=== PATIENT | male | born 1935 ===

== ENCOUNTER 2016-10-30 11:31 | Inpatient (IN) | payer MEDICARE ==
[2016-10-30 11:31] VITALS: BMI 23.1
[2016-10-30] MEDS ORDERED: Piperacill/Tazo 4.5gm in NS 100 ML IVPB STA (12:15)
[2016-10-30] MEDS ORDERED: Morphine 4 mg/ml ISec IVP STA (12:15)
--- NOTE | 2016-10-30 12:16 | ED PDOC ---
Arrival/HPI - General Chief Complaint: Abnormal Skin Integrity Time Seen by Provider: 10/30/16 12:11 Historian: Family (Daughter) - History of Present Illness Narrative History of Present Illness (Text): 10/30/16 12:11 A 81 year old male, whose past medical history includes Alzheimer's disease, Parkinson's disease and dementia, was brought into the emergency department by daughter complaining of discoloration on left heel for the past 3 days. Patient was seen by PMD today and sent in to emergency room for admission. As per daughter, patient is acting normal to baseline. ROS limited due to patients state. PMD: Dr. Hernández Time/Duration: Other (3 days) Symptom Course: Worsening Quality: Other Context: Home Past Medical History - Provider Review Nursing Documentation Reviewed: Yes - Infectious Disease Hx of Infectious Diseases: None - Cardiac Hx Atrial Fibrillation: Yes Hx Hypertension: Yes - Pulmonary Hx Respiratory Disorders: No - Neurological Hx Alzheimer's Disease: Yes Hx Dementia: Yes Hx Parkinson's Disease: Yes - Renal Hx Renal Disorder: Yes Hx Renal Cancer: Yes (BLADDER CA WITH SX) - Musculoskeletal/Rheumatological Hx Falls: Yes - Genitourinary/Gynecological Hx Bladder Cancer: Yes (removed 20 years ago) - Psychiatric Hx Substance Use: No - Surgical History Other/Comment: prostate surgery 20 years ago - Anesthesia Hx Anesthesia Reactions: No Hx Malignant Hyperthermia: No Family/Social History - Physician Review Nursing Documentation Reviewed: Yes Family/Social History: No Known Family HX Smoking Status: Never Smoked Hx Alcohol Use: No Hx Substance Use: No Allergies/Home Meds Allergies/Adverse Reactions: Allergies donepezil HCl [From Aricept] Adverse Reaction (Verified 10/30/16 12:05) ANAPHYLAXIS Home Medications: Home Meds Medication Instructions Recorded Confirmed Aspirin [Ecotrin] 81 mg PO DAILY 08/04/16 08/07/16 Carbidopa/Levodopa 1 tab PO BID 08/04/16 10/30/16 [Carbidopa-Levodopa 25-100 Tab] Cyproheptadine [Periactin] 4 mg PO BID 08/04/16 10/30/16 Memantine [Namenda] 10 mg PO BID 08/04/16 10/30/16 Metoprolol Succinate [Toprol XL] 50 mg PO DAILY 08/04/16 10/30/16 Olmesartan/Hydrochlorothiazide 1 mg PO DAILY 08/04/16 10/30/16 [Benicar Hct 20-12.5 mg Tablet] diltiaZEM CD [Cardizem CD] 120 mg PO DAILY 08/07/16 10/30/16 Olmesartan/Hydrochlorothiazide 1 tab PO DAILY 10/30/16 10/30/16 [Benicar Hct 12.5 mg-20 mg] Review of Systems - Patients Enrolled in Psychotherapist Counselor Initiative [X]: (Dementia/Alzheimer's disease) - Review of Systems Systems not reviewed;Unavailable: Dementia (/Alziehmer's disease) Physical Exam - Physical Exam Narrative Physical Exam (Text): - Physical exam Patient appears age appropriate - Systems Exam Head: Present: Atraumatic, Normocephalic Pupils: Present: PERRL Extraocular Muscles: Present: EOMI Conjunctiva: Present: Normal Mouth: Present: Moist Mucous Membranes Neck: Present: Normal Range of Motion. No: MIDLINE TENDERNESS, Paraspinal Tenderness Respiratory/Chest: Present: Clear to Auscultation, Good Air Exchange. No: Respiratory Distress, Accessory Muscle Use, Tachypneic Cardiovascular: Present: Regular Rate and Rhythm, Normal S1, S2, Peripheral Pulses Present. No: Murmurs Abdomen: Present: Normal Bowel Sounds, No: Tenderness, Peritoneal Signs, Rebound, Guarding, Distention Back: Present: Normal Inspection. No: Midline Tenderness, Paraspinal Tenderness Upper Extremity: Present: Normal Inspection. No: Cyanosis, Edema Lower Extremity: Present: Discoloration in left heel, dark in appearance and tender to palpation No: Edema Neurological: Present: GCS=15, cranial nerves II through XII fully intact with no cerebellar abnormality, neuro-sensory fully intact. No focal neurological deficits. Skin: Present: Warm, Dry, Normal Color. No: Rashes Lymphatic: Present: OX3, NI, NC Psychiatric: Present: Alert Vital Signs Reviewed: Yes Vital Signs Temp Pulse Resp BP Pulse Ox 10/30/16 14:00 88 20 136/79 100 10/30/16 11:59 100.6 F H 100 H 20 135/77 99 Temperature: Febrile Blood Pressure: Normal Pulse: Tachycardic Respiratory Rate: Normal Appearance: Positive for: Non-Toxic, Comfortable, Cachectic Mental Status: Positive for: other (Alert). No: Agitated Medical Decision Making ED Course and Treatment: 10/30/16 12:11 Impression: A 81 year old male with discoloration on left heel, daughter reports decreased mobility at home. L. heel with dark ulceration on exam. Extremity is warm. Plan: -- Left heel xray -- Labs -- Blood culture -- Morphine, Tylenol and Zosyn -- Reassess and disposition Progress Notes: Report Date : 10/30/2016 15:00:50 PROCEDURE: Radiographs of the left calcaneus/hindfoot. Dictator : Chet Romo MD IMPRESSION: Unremarkable radiographs of the left calcaneus /hindfoot. 10/30/16 15:[address] Hernández, agrees with admission to his service asked to consult Dr. Elam and to order ABIs (aware to f/u) pt's family aware of and agree with plan PROCEDURE: Lower extremity RUSSELL exam Timber Cruiser : Jay Cooper MD FINDINGS: The resting RUSSELL's are normal: right, 1.14and left, 1.19. The brachial systolic pressures are symmetric. The high thigh pressures and waveforms are relatively normal. The calf PVR waveforms augment normally. No significant gradients are noted across the thighs. The ankle and metatarsal waveforms are relatively normal and symmetric. No significant pressure gradients are noted across the lower legs. IMPRESSION: 1. Relatively normal RUSSELL and PVR examination at rest. - Lab Interpretations Lab Results: 10/30/16 12:50 10/30/16 12:50 Lab Results 10/30/16 12:50: WBC 5.9 D, RBC 3.66, Hgb 10.9 L, Hct 31.9 L, MCV 87.2, MCH 29.8 , MCHC 34.2, RDW 13.0, Plt Count 325, MPV 10.2, Gran % 75.6 H, Lymph % (Auto) 13.5 L, [facility] % (Auto) 10.5 H, Eos % (Auto) 0.2 L, Baso % (Auto) 0.2, Gran # 4.49 , Lymph # 0.8 L, [facility] # 0.6, Eos # 0.0, Baso # 0.01, PT 12.4 H, INR 1.15 H, APTT 30.0, Sodium 138, Potassium 4.1, Chloride 100, Carbon Dioxide 30, Anion Gap 12, BUN 18, Creatinine 0.8, Est GFR ( Amer) > 60, Est GFR (Non-Af Amer) > 60, Random Glucose 189 H, Calcium 9.5, Total Bilirubin 1.2, AST 22, ALT 23, Alkaline Phosphatase 87, Total Protein 7.5, Albumin 3.5, Globulin 4.0, Albumin/Globulin Ratio 0.9 L I have reviewed the lab results: Yes - RAD Interpretation Radiology Orders: 10/30/16 13:13 HEEL LEFT [RAD] Stat 10/30/16 15:45 LOWER EXT ART NON-INV COMPL [US] Stat - Medication Orders Current Medication Orders: Carbidopa/Levodopa (Sinemet Cr) 1 tab PO BID [facility] Ampicillin Sodium/Sulbactam (Sodium 1.5 gm/ Sodium Chloride) 100 mls @ 200 mls/ hr IVPB Q6 [facility] PRN Reason: Protocol Losartan Potassium (Cozaar) 50 mg PO DAILY [facility] Memantine (Namenda) 10 mg PO BID [facility] Metoprolol Succinate (Toprol Xl) 50 mg PO BRK [facility] Discontinued Medications Acetaminophen (Tylenol 325mg Tab) 975 mg PO STAT STA Stop: 10/30/16 12:16 Last Admin: 10/30/16 13:04 Dose: Not Given Non-Admin Reason: Patient Refused Piperacillin Sod/Tazobactam Sod (Zosyn 4.5 Gm In Ns 100ml) 100 mls @ 200 mls/ hr IVPB STAT [facility] PRN Reason: Protocol Stop: 10/30/16 12:44 Last Admin: 10/30/16 13:00 Dose: 200 MLS/HR eMAR Start Stop Document 10/30/16 13:00 [place] (Rec: 10/30/16 13:00 [facility] [id number]) Intravenous Solution Start Date 10/30/16 Start Time 13:00 End Date 10/30/16 End time 14:00 Total Infusion Time 60 Losartan Potassium (Cozaar) 50 mg PO STAT STA Stop: 10/30/16 17:08 Morphine Sulfate (Morphine) 4 mg IVP STAT STA Stop: 10/30/16 12:16 Last Admin: 10/30/16 13:00 Dose: 4 MG MAR Pain Assessment Document 10/30/16 13:00 [place] (Rec: 10/30/16 13:01 [facility] [id number]) Pain Reassessment Is this a pain reassessment? No Sleep Is patient sleeping during reassessment? No Presence of Pain Presence of Pain Yes IVP Administration Document 10/30/16 13:00 [place] (Rec: 10/30/16 13:01 [facility] [id number]) Charges for Administration # of IVP Administrations 1 - Scribe Statement The provider has reviewed the documentation as recorded by the Scribe Vangie Cedeno Provider Scribe Attestation: All medical record entries made by the Scribe were at my direction and personally dictated by me. I have reviewed the chart and agree that the record accurately reflects my personal performance of the history, physical exam, medical decision making, and the department course for this patient. I have also personally directed, reviewed, and agree with the discharge instructions and disposition. Disposition/Present on Arrival - Present on Arrival Any Indicators Present on Arrival: No History of DVT/PE: No History of Uncontrolled Diabetes: No Urinary Catheter: No History of Decub. Ulcer: Yes (DTI ,stage 2 decube) History Surgical Site Infection Following: None - Disposition Have Diagnosis and Disposition been Completed?: Yes Diagnosis: Ulcer Disposition: HOSPITALIZED Disposition Time: 15:48 Patient Plan: Admission Patient Problems: Current Active Problems Problem Status Diagnosed Ulcer Acute Condition: FAIR
[2016-10-30 13:05] LABS: ADD MANUAL DIFF? NO
[2016-10-30 13:09] LABS: BASO # 0.01 K/mm3 (0.0-2.0); BASO % 0.2 % (0.0-3.0); EOS % 0.2 % (1.5-5.0); GRAN # 4.49 (1.4-6.5); GRAN % 75.6 % (50.0-68.0); HEMATOCRIT 31.9 % (42.0-52.0); LYMPH # 0.8 (1.2-3.4); LYMPH % 13.5 % (22.0-35.0); MEAN CELL VOLUME 87.2 fL (80.0-105.0); MEAN CORPUSCULAR HEMOGLOBIN 29.8 pg (25.0-35.0); MEAN CORPUSCULAR HGB CONC 34.2 g/dl (31.0-37.0); MEAN PLATELET VOLUME 10.2 fl (7.0-11.0); MONO # 0.6 (0.1-0.6); MONO % 10.5 % (1.0-6.0); PLATELET COUNT 325 10^3/uL (120.0-450.0); WHITE BLOOD COUNT 5.9 10^3/ul (4.5-11.0)
[2016-10-30 13:18] LABS: ALB/GLOB RATIO 0.9 (1.1-1.8); ALKALINE PHOSPHATASE 87 U/L (38-133); ALT/SGPT 23 U/L (7-56); AST/SGOT 22 U/L (15-59); BILIRUBIN,TOTAL 1.2 mg/dL (0.2-1.3); BLOOD UREA NITROGEN 18 mg/dL (7-21); CALCIUM 9.5 mg/dL (8.4-10.5); CARBON DIOXIDE 30 mmol/L (21-33); CHLORIDE 100 mmol/L (98-107); GFR AFRICAN-AMERICAN > 60; GLUCOSE,RANDOM 189 mg/dL (70-110); POTASSIUM 4.1 mmol/L (3.6-5.0); SODIUM 138 mmol/L (132-148); TOTAL PROTEIN 7.5 g/dL (5.8-8.3)
[2016-10-30 13:20] LABS: INR 1.15 (0.93-1.08)
--- NOTE | 2016-10-30 15:02 | RAD ---
PROCEDURE: Radiographs of the left calcaneus/hindfoot. HISTORY: fever, ulcer COMPARISON: None available. TECHNIQUE: Frontal and lateral radiographs of the calcaneus. FINDINGS: No fracture or joint dislocation. No focal lesion. No calcaneal spur. IMPRESSION: Unremarkable radiographs of the left calcaneus /hindfoot.
--- NOTE | 2016-10-30 17:53 | US ---
PROCEDURE: Lower extremity RUSSELL exam HISTORY: Peripheral vascular disease with pain and claudication. Diabetes. Gangrene left foot PHYSICIAN(S): Jay Rowell MD. FINDINGS: The resting RUSSELL's are normal: right, 1.14and left, 1.19. The brachial systolic pressures are symmetric. The high thigh pressures and waveforms are relatively normal. The calf PVR waveforms augment normally. No significant gradients are noted across the thighs. The ankle and metatarsal waveforms are relatively normal and symmetric. No significant pressure gradients are noted across the lower legs. IMPRESSION: 1. Relatively normal RUSSELL and PVR examination at rest.
--- NOTE | 2016-10-30 18:49 | HP ---
HISTORY OF PRESENT ILLNESS: The patient is an 81-year-old male with a history of Alzheimer's and Par kinson's disease, brought into the Emergency Department for a necrotic ulcer involving the left foot with pain and swelling of the left heel for the past 2-3 days. PAST MEDICAL HISTORY: Includes Parkinson's disease with immobility, Alzheimer disease, significant w eight loss, hypertension. There is no history of coronary disease, diabetes or stroke. 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 CURRENT MEDICATIONS: Include Namenda 10 mg twice daily, Benicar HCT 20/12.5 once daily, metoprolol 5 0 mg daily and Sinemet-CR 200/50 twice daily. ALLERGIES: THE PATIENT HAS AN ALLERGY TO ARICEPT. SOCIAL HISTORY: The patient has no history of tobacco or alcohol abuse. He lives with his family. He is dependent with ADLs and IADLs. REVIEW OF SYSTEMS: Essentially unobtainable secondary to the patient's condition. PHYSICAL EXAMINATION: GENERAL: The patient is a cachectic elderly male in no acute distress. VITAL SIGNS: Blood pressure 136/79, temperature 100.6 rectally, pulse 88, respiratory rate 20. HEENT: Head is normocephalic, atraumatic. There is bilateral temporal wasting. Pupils equal, round and reactive. NECK: Somewhat stiff with no carotid bruit, no adenopathy. LUNGS: Clear. There is a poor inspiratory effort. HEART: Regular rate and rhythm. ABDOMEN: Soft, nontender, bowel sounds are normoactive. EXTREMITIES: Without cyanosis, clubbing. There is a 5-6 cm in diameter necrotic ulcer involving the left heel with some surrounding erythema, no discharge. NEUROLOGIC: The patient is responsive to painful stimuli by opening his eyes. He is nonverbal. The re is bilateral muscular atrophy and wasting with significant cogwheeling and rigidity. The patient is oriented x 0. LABORATORY DATA: WBC is 5.9, hemoglobin 10.9, hematocrit 31.9. Sodium 138, potassium 4.1, chloride 100, CO2 of 30, BUN 18, creatinine 0.8, glucose 189. X-ray of the left heel is negative for osteomye litis. Arterial Doppler of the lower extremity showed no significant vascular obstruction. IMPRESSION: 1. Necrotic pressure ulcer of the left foot due to immobility. 2. Advanced Parkinson's disease. 3. History of hypertension. 4. Severe Alzheimer's disease. 5. History of cancer of the prostate, status post radical prostatectomy. PLAN: The patient will be admitted to the medical surgical floor. Will obtain podiatry consult from Dr. Elam. Will start empiric antibiotics with Unasyn 1.5 grams q. 6 hours. Wound care. Social work for discharge planning. Oswaldo Hernández JD, MD cc: [phone] TT: 10/30/2016 18:48:48 mn
[2016-10-30] MEDS: Ampicillin/Sulbactam 1.5 GM in Sodium Chloride 0.9% 100 ML IVPB SCH ×2 (19:16→23:51)
[2016-10-30] MEDS: Carbidopa/Levodopa 50/200 CR PO SCH (19:40)
[2016-10-31] MEDS: Ampicillin/Sulbactam 1.5 GM in Sodium Chloride 0.9% 100 ML IVPB SCH ×4 (06:11→23:19)
[2016-10-31] MEDS: Metoprolol Succinate 50 mg XL Tab PO SCH (08:33)
[2016-10-31] MEDS: Carbidopa/Levodopa 50/200 CR PO SCH ×2 (11:00→18:05)
--- NOTE | 2016-10-31 14:48 | CP.PCM.CON ---
<Jahaira Agueroa - Last Filed: 10/31/16 14:45> History of Present Illness - History of Present Illness History of Present Illness: 81 y/o male with pmhx of parkinsons, alzheimer disease, HTN, seen at bedside with attnding Dr. Rojo for left heel pain. Patient is bedbound with multipodus boots intact to bilateral lower extremities. Patient complains of left heel and left knee pain that started a few days ago. Patient denies any other pedal complaints. Denies n/f/v/d/c/sob. Review of Systems - Constitutional Constitutional: As Per HPI Past Patient History - Infectious Disease Hx of Infectious Diseases: None - Past Social History Smoking Status: Former Smoker - CARDIAC Hx Hypertension: Yes - PULMONARY Hx Respiratory Disorders: No - NEUROLOGICAL Hx Alzheimer's Disease: Yes Hx Dementia: Yes Hx Parkinson's Disease: Yes - HEENT Hx HEENT Problems: No - RENAL Hx Chronic Kidney Disease: Yes Hx Renal (Kidney) Cancer: Yes (BLADDER CA WITH SX) - ENDOCRINE/METABOLIC Hx Endocrine Disorders: No - HEMATOLOGICAL/ONCOLOGICAL Hx Blood Disorders: No - INTEGUMENTARY Hx Dermatological Problems: No Other/Comment: stage two on sacrum - MUSCULOSKELETAL/RHEUMATOLOGICAL Hx Falls: Yes - GENITOURINARY/GYNECOLOGICAL Hx Genitourinary Disorders: Yes Hx Prostate Problems: Yes (PROSTATE CA WITH PROSTECTOMY) - PSYCHIATRIC Hx Substance Use: No - SURGICAL HISTORY Hx Surgeries: Yes Other/Comment: prostate surgery 20 years ago - ANESTHESIA Hx Anesthesia Reactions: No Hx Malignant Hyperthermia: No Meds Allergies/Adverse Reactions: Allergies Allergy/AdvReac Type Severity Reaction Status Date / Time donepezil HCl [From Aricept] AdvReac ANAPHYLAXIS Verified 10/30/16 12:05 - Medications Medications: Current Medications Carbidopa/Levodopa (Sinemet Cr) 1 tab PO BID [facility] Last Admin: 10/31/16 11:00 Dose: 1 tab Ampicillin Sodium/Sulbactam (Sodium 1.5 gm/ Sodium Chloride) 100 mls @ 200 mls/ hr IVPB Q6 [facility] PRN Reason: Protocol Last Admin: 10/31/16 12:33 Dose: 200 mls/hr Losartan Potassium (Cozaar) 50 mg PO DAILY [facility] Last Admin: 10/31/16 11:00 Dose: 50 mg Memantine (Namenda) 10 mg PO BID [facility] Last Admin: 10/31/16 11:00 Dose: 10 mg Metoprolol Succinate (Toprol Xl) 50 mg PO BRK [facility] Last Admin: 10/31/16 08:33 Dose: 50 mg Physical Exam - Constitutional Appears: Well, Non-toxic, No Acute Distress - Extremities Exam Additional comments: Vasc: lightly palpable pedal pulses, CFT < 3 sec to all digits, TG wnl, no edema neuro: grossly diminished derm: no edema, no erythema, echymoses noted to plantar left heel, no ascending cellulitis, no open lesions, no drainage, no acute clinical signs of infection ortho: mild pain on palpation to left plantar heel - Neurological Exam Neurological exam: Alert, Oriented x3 - Psychiatric Exam Psychiatric exam: Normal Affect, Normal Mood Results - Vital Signs Recent Vital Signs: Last Vital Signs Temp 99 F 10/31/16 07:57 Pulse 97 H 10/31/16 11:00 Resp 18 10/31/16 07:57 BP 110/68 10/31/16 11:00 Pulse Ox 95 10/31/16 07:57 - Labs Result Diagrams: 10/30/16 12:50 10/30/16 12:50 Labs: Laboratory Results - last 24 hr 10/30/16 19:16 ESR 69 H Uric Acid 2.8 L Assessment & Plan - Assessment and Plan (Free Text) Assessment: 81 y/o male seen at bedside with attending Dr. Rojo for left heel preulcerative lesion secondary to pressure Plan: patient evaluated and seen at bedside with attending Dr. Rojo labs and vitals reviewed applied optifoam, DSD to left heel continue wearing multipodus boots while in bed Rx arterial doppler bilateral lower extremities RUSSELL / PVr relatively normal; R=1.14, L=1.19 podiatry will continue to monitor while patient remains in house <Luis Alberto Rojo - Last Filed: 10/31/16 16:41> Meds - Medications Medications: Current Medications Carbidopa/Levodopa (Sinemet Cr) 1 tab PO BID [facility] Last Admin: 10/31/16 11:00 Dose: 1 tab Ampicillin Sodium/Sulbactam (Sodium 1.5 gm/ Sodium Chloride) 100 mls @ 200 mls/ hr IVPB Q6 [facility] PRN Reason: Protocol Last Admin: 10/31/16 12:33 Dose: 200 mls/hr Losartan Potassium (Cozaar) 50 mg PO DAILY [facility] Last Admin: 10/31/16 11:00 Dose: 50 mg Memantine (Namenda) 10 mg PO BID [facility] Last Admin: 10/31/16 11:00 Dose: 10 mg Metoprolol Succinate (Toprol Xl) 50 mg PO BRK [facility] Last Admin: 10/31/16 08:33 Dose: 50 mg Results - Vital Signs Recent Vital Signs: Last Vital Signs Temp 99 F 10/31/16 07:57 Pulse 97 H 10/31/16 11:00 Resp 18 10/31/16 07:57 BP 110/68 10/31/16 11:00 Pulse Ox 95 10/31/16 07:57 - Labs Result Diagrams: 10/30/16 12:50 10/30/16 12:50 Labs: Laboratory Results - last 24 hr 10/30/16 19:16 ESR 69 H Uric Acid 2.8 L Attending/Attestation - Attestation I have personally seen and examined this patient.: Yes I have reviewed all pertinent clinical information: Yes
--- NOTE | 2016-10-31 16:43 | PN ---
DATE: 10/31/2016 SUBJECTIVE: The patient is lying in bed in no acute distress. OBJECTIVE: VITAL SIGNS: Blood pressure 110/68, temperature 99, pulse 97, respiratory rate 18. LUNGS: Clear. HEART: Regular rate and rhythm. ABDOMEN: Soft, nontender. Bowel sounds are normoactive. EXTREMITIES: Without cyanosis or clubbing. A dressing of the left foot is intact. NEUROLOGIC: The patient is awake and confused without focal sensory or motor deficits. There is naida ateral cogwheeling and rigidity which is improved since yesterday, IMPRESSION: 1. Necrotic pressure ulcer of the left foot due to immobility. 2. Advanced Parkinson's disease. 3. Hypertension. 4. Alzheimer's disease. 5. History of cancer of the prostate, status post radical prostatectomy. PLAN: Podiatry consultation is appreciated. Continue followup for wound care. Continue IV Unasyn 1 .5 grams q. 6 hours. We will obtain neurology consult from Dr. Holliday for follow up of Parkinson dis ease. Social work for discharge planning. Oswaldo Hernández JD, MD cc: [id number] TT: 10/31/2016 16:42:37 Confirmation # [id number] Dictation # [id number] tn
[2016-10-31 17:41] VITALS: O2SAT 97
[2016-11-01] MEDS: Ampicillin/Sulbactam 1.5 GM in Sodium Chloride 0.9% 100 ML IVPB SCH (05:19)
[2016-11-01] MEDS: Carbidopa/Levodopa 50/200 CR PO SCH ×2 (10:56→17:09)
[2016-11-01] MEDS: Metoprolol Succinate 50 mg XL Tab PO SCH (10:56)
--- NOTE | 2016-11-01 11:34 | DS ---
HOSPITAL COURSE: The patient is an 81-year-old male with a history of Alzheimer's disease and Harrison son's disease with immobility who developed a necrotic pressure ulcer of the left heel with swelling and pain of the left foot. He was treated empirically with IV Unasyn 1.5 grams q. 6 hours with impro vement of the swelling. There is no discharge in the foot. The patient was seen in consultation by podiatry, Dr. Rojo, and he is now medically stable for discharge. PHYSICAL EXAMINATION: VITAL SIGNS: Blood pressure 149/71, temperature 97.8, pulse 61, respiratory rate 20. LUNGS: Clear. HEART: Regular rate and rhythm. ABDOMEN: Soft, nontender, bowel sounds are normoactive. EXTREMITIES: There is a 5-6 cm diameter necrotic ulcer of the left heel with no erythema, no dischar ge. SKIN: The patient also has a stage II-III pressure ulcer of the sacrum. IMPRESSION: 1. Pressure ulcer of the left foot/stage II-III sacral pressure ulcer. 2. Advanced Parkinson's disease. 3. Advanced Alzheimer disease. 4. Hypertension. 5. History of cancer of the prostate, status post radical prostatectomy. PLAN: The patient will be discharged to home in stable condition on the following medications: Benic ar HCT 20/12.5 once daily, metoprolol 50 mg daily, Sinemet CR 200/50 twice daily, Namenda 10 mg b.i.d . He was given a prescription for Augmentin 500 mg q. 8 hours for the next 5-7 days. The patient wa s also given a prescription for a hospital bed with an alternating air loss mattress to relieve press ure. The patient will be maintained on a soft mechanical diet with thickened liquids. Activity is a d libitum. The family was advised to position the patient q. 2 hours while in bed to prevent pressur e ulcers. He will be followed up in the wound care center and in my office within the next 1-2 weeks . Oswaldo Hernández JD, MD cc: [phone] TT: 11/01/2016 11:34:37 diomedes
--- NOTE | 2016-11-01 12:31 | CT ---
PROCEDURE: CT HEAD WITHOUT CONTRAST. HISTORY: mental status decline two weeks COMPARISON: 08/04/2016 TECHNIQUE: Axial computed tomography images were obtained through the head/brain without intravenous contrast. Radiation dose: Total exam DLP = 1377 mGy-cm. This CT exam was performed using one or more of the following dose reduction techniques: Automated exposure control, adjustment of the mA and/or kV according to patient size, and/or use of iterative reconstruction technique. FINDINGS: HEMORRHAGE: No intracranial hemorrhage. BRAIN: No mass effect or edema. The prior cerebral atrophy and right basal ganglion lacune or infarcts are similar appearing. There also may be tiny here left basal ganglionic lacunes here as well-not significantly changed. VENTRICLES: Prominent commensurate with the degree of atrophy CALVARIUM: Unremarkable. PARANASAL SINUSES: Unremarkable as visualized. No significant inflammatory changes. MASTOID AIR CELLS: Unremarkable as visualized. No inflammatory changes. OTHER FINDINGS: None. IMPRESSION: Atrophy and chronic appearing basal ganglionic lacunar infarcts- greater than right -unchanged No interval hemorrhage or mass effect suggested
--- NOTE | 2016-11-01 13:33 | CON ---
DATE: 11/01/2016 CHIEF COMPLAINT: Dementia and Parkinson's. HISTORY OF PRESENT ILLNESS: This is an 81-year-old man with history of dementia, likely Alzheimer's type, Parkinson disease, on Sinemet-CR 50/200 one tab p.o. b.i.d., and on Namenda 10 mg p.o. b.i.d. f or underlying dementia, who had a rapid decline in terms of behavior and very forgetful over the past 2 weeks and found to have left foot pain with swelling of the left heel, found to have a pressure ne crotic ulcer, which was managed by podiatry. Currently, he does have increased tone throughout, whic h is consistent with Parkinson disease and has severe cognitive impairment from his underlying emanuel ia. He is on Namenda and he is on Sinemet CR 50/200 for his Parkinson's. PAST MEDICAL HISTORY: Parkinson's disease with immobility, Alzheimer's type dementia, significant we ight loss, hypertension. PAST SURGICAL HISTORY: Includes history of adenocarcinoma of prostate, status post radical prostatec vanessa in the remote past. MEDICATIONS: Reviewed via nurse's reconciliation sheet. ALLERGIES: ARICEPT. SOCIAL HISTORY: No illicit drug use, smoking, or ETOH abuse. REVIEW OF SYSTEMS: Was unable to obtain due to patient's underlying dementia. PHYSICAL EXAMINATION: VITAL SIGNS: Temperature 97.8, pulse rate 84, blood pressure 119/68, respiratory rate 20, oxygen sat uration 97% on room air. GENERAL: The patient is sitting up in bed in no acute distress. HEENT: Atraumatic, normocephalic. PERRLA. Extraocular muscles intact. NECK: Supple, no JVD, no adenopathy noted. LUNGS: Clear to auscultation. No adventitious sounds. HEART: S1, S2, normal rate and rhythm. No murmurs, rubs, or gallops. ABDOMEN: Soft, nontender, nondistended. Bowel sounds present. EXTREMITIES: No clubbing, no cyanosis. Peripheral pulses 2+ felt bilaterally. Has a necrotic ulcer on the left heel, which has been bandaged. NEUROLOGIC: The patient is alert, oriented to self and person, not much of month or year. Recall af ter 5 minutes is 0/3. He closes his eyes when talking to him. He has poor insight, poor judgment. Recall after 5 minutes is 0/3. Speech is hypophonic. Cranial nerves II through XII are intact. MOTOR: Increased tone throughout. Has cogwheel rigidity at the wrists. SENSORY: Light touch, proprioception and vibration intact. DTRs are 1+ throughout. COORDINATION AND GAIT: Deferred for now. LABORATORY DATA: gas is 2.8. Sodium 138, potassium 4.1, chloride 100, carbon dioxide 30, BUN of 18, creatinine 0.8. Random glucose 189. ASSESSMENT AND PLAN: This is an 81-year-old man with past medical history of advanced dementia, Alzh eimer's type, with history of urinary tract infection, history of Parkinson disease, on Sinemet-CR 50 /200 one tab p.o. b.i.d., history of hypertension, history of prostate cancer, status post radical pr ostatectomy, who came in because of left foot pain, found to have left heel necrotic ulcer, which is managed by podiatry. I was consulted for Parkinson's disease. He does have severe Parkinson disease , superimposed underlying dementia, Alzheimer's type, which has had a rapid decline. At this time, re commend: 1. Continue with Sinemet-CR 50/200 one tab p.o. b.i.d. and Namenda for his dementia of 10 mg p.o. t. i.d., avoid nighttime interruptions, frequent orientation throughout the day and will require home ph ysical therapy and home chcf and will evaluate him in my office. At this time, continue with current present medical management and get a CAT scan of the head to see if anything acute. If negative, is going to be discharged home. Parth Holliday MD cc: [id number] TT: 11/01/2016 13:32:30 Confirmation # [id number] Dictation # [id number] diomedes
--- NOTE | 2016-11-01 14:00 | CP.PCM.PN ---
Subjective - Date & Time of Evaluation Date of Evaluation: 11/01/16 Time of Evaluation: 13:56 - Subjective Subjective: 81 y/o male with pmhx of parkinsons, alzheimer disease, HTN, seen at bedside with attending Dr. Elam for left heel pain. Patient is bedbound with multipodus boots intact to bilateral lower extremities. Patient's dressing remains c/d/i. Patient denies any other pedal complaints. Denies n/f/v/d/c/sob. Objective - Vital Signs/Intake and Output Vital Signs (last 24 hours): Temp Pulse Resp BP Pulse Ox 97.8 F 84 20 119/68 97 11/01/16 08:00 11/01/16 08:00 11/01/16 08:00 11/01/16 08:00 11/01/16 08:00 Intake and Output: 11/01/16 11/01/16 06:59 18:59 Intake Total 1020 Balance 1020 - Medications Medications: Current Medications Carbidopa/Levodopa (Sinemet Cr) 1 tab PO BID [facility] Last Admin: 11/01/16 10:56 Dose: 1 tab Losartan Potassium (Cozaar) 50 mg PO DAILY [facility] Last Admin: 11/01/16 10:56 Dose: 50 mg Memantine (Namenda) 10 mg PO BID [facility] Last Admin: 11/01/16 10:56 Dose: 10 mg Metoprolol Succinate (Toprol Xl) 50 mg PO BRK [facility] Last Admin: 11/01/16 10:56 Dose: 50 mg - Labs Labs: PT 12.4 Seconds (9.9-11.8) H 10/30/16 12:50 INR 1.15 (0.93-1.08) H 10/30/16 12:50 APTT 30.0 Seconds (23.7-30.8) 10/30/16 12:50 - Constitutional Appears: Well, Non-toxic, No Acute Distress - Extremities Exam Additional comments: Vasc: nonpalpable pedal pulses, CFT < 3 sec to all digits, TG wnl, no edema neuro: grossly diminished derm: no edema, no erythema, echymoses noted to plantar left heel consistent with a deep tissue injury, no ascending cellulitis, no open lesions, no drainage , no acute clinical signs of infection ortho: mild pain on palpation to left plantar heel - Neurological Exam Neurological Exam: Alert, Awake - Psychiatric Exam Psychiatric exam: Normal Affect, Normal Mood Assessment and Plan - Assessment and Plan (Free Text) Assessment: 81 y/o male seen at bedside with attending Dr. Elam for left heel preulcerative lesion/deep tissue injury secondary to pressure Plan: patient evaluated and seen at bedside with attending Dr. Elam labs and vitals reviewed; afebrile continue with abx as instructed continue wearing multipodus offloading boots while bedbound continue wearing optifoam to left heel RUSSELL / PVr relatively normal; R=1.14, L=1.19 podiatry will continue to monitor while patient remains in house
[2016-11-01 16:31] VITALS: BP 132/61; PULSE 75; RESP 16; TEMP 98.2
== END 2016-11-01 17:46 | disposition home health service (06) | DRG 594 ==
LOC: ED 11:31 → ERH 15:48 → 5RNO 21:44
PROVIDERS: ADMIT Internal Medicine; ATTEND Internal Medicine
DX: L89.629 Pressure ulcer of left heel, unspecified stage (principal); L89.153 Pressure ulcer of sacral region, stage 3; G20 Parkinson's disease; G30.9 Alzheimer's disease, unspecified; F02.80 Dementia in other diseases classified elsewhere, unspecified severity, without behavioral disturbance, psychotic disturbance, mood disturbance, and anxiety; I10 Essential (primary) hypertension; Z74.01 Bed confinement status; Z90.79 Acquired absence of other genital organ(s); Z85.46 Personal history of malignant neoplasm of prostate; Z87.891 Personal history of nicotine dependence